=== PATIENT | female | born 1995 | race Caucasian/White ===

== ENCOUNTER 2023-01-28 21:00 | Emergency (ER) | payer MEDICAID ==
[~2023-01-28] VITALS: Ht 170.2 cm; Wt 68.2 kg
[2023-01-28 22:59] VITALS: BP 129/67
[2023-01-29] MEDS ORDERED: BACITRACIN 0.9 GM PACKET OINTMENT TP ONE (00:45)
[2023-01-29] MEDS ORDERED: CEPH-558 PO (00:48)
[2023-01-29] MEDS ORDERED: CLOT113C TP (00:48)
[2023-01-29] MEDS ORDERED: BACI28OI9 TP (00:48)
[2023-01-29] MEDS ORDERED: HYDR30CR39 TP (00:52)
== END 2023-01-29 02:01 | disposition home or self-care (01) ==
LOC: EMS 21:00
DX: O26.892 Other specified pregnancy related conditions, second trimester (principal); O99.332 Smoking (tobacco) complicating pregnancy, second trimester; S90.822A Blister (nonthermal), left foot, initial encounter; B35.4 Tinea corporis; Z3A.20 20 weeks gestation of pregnancy; X58.XXXA Exposure to other specified factors, initial encounter; Y93.89 Activity, other specified; Y92.89 Other specified places as the place of occurrence of the external cause; Y99.8 Other external cause status
CPT/HCPCS: 76805; 99284; Z7502; Z7610

== ENCOUNTER 2023-04-30 13:17 | Emergency (ER) | payer MEDICAID ==
[~2023-04-30] VITALS: Ht 167.6 cm; Wt 77.3 kg
[~2023-04-30 13:17] MED LIST: BACI28.410 TP; CEPH-558 PO; CLOT113C TP; HYDR30CR39 TP
[2023-04-30 13:25] VITALS: BP 131/49; PULSE 107; RESP 18; TEMP 97.8
== END 2023-04-30 14:28 | disposition left against medical advice (07) ==
LOC: EMS 13:19
DX: O26.893 Other specified pregnancy related conditions, third trimester (principal); Z3A.35 35 weeks gestation of pregnancy; Z53.21 Procedure and treatment not carried out due to patient leaving prior to being seen by health care provider
CPT/HCPCS: 99281; Z7502